=== PATIENT | female | born 1955 | race Caucasian/White ===

== ENCOUNTER 2017-04-03 11:08 | Outpatient (CLI) | payer MEDICAID ==
[~2017-04-03 11:08] MED LIST: HYDR-3965 PO
[2017-04-03 11:18] VITALS: BP 155/87
== END 2017-04-03 11:55 | disposition home or self-care (01) ==
LOC: ORTHO 11:08
PROVIDERS: ATTEND Nurse Practitioner Family
DX: S89.92XA Unspecified injury of left lower leg, initial encounter (principal); X50.1XXA Overexertion from prolonged static or awkward postures, initial encounter; Y93.89 Activity, other specified; Y92.838 Other recreation area as the place of occurrence of the external cause
CPT/HCPCS: 99213

== ENCOUNTER 2017-04-23 10:53 | Emergency (ER) | payer MEDICAID ==
[~2017-04-23] VITALS: Ht 154.9 cm; Wt 59.0 kg
[2017-04-23] MEDS ORDERED: ACET1TAB12 PO (12:15)
[2017-04-23 12:22] VITALS: BP 154/85
== END 2017-04-23 12:23 | disposition home or self-care (01) ==
LOC: ER 10:53
DX: M25.562 Pain in left knee (principal); Z56.0 Unemployment, unspecified; Z59.0 Homelessness; Z79.899 Other long term (current) drug therapy
CPT/HCPCS: 29505; 99283

== ENCOUNTER 2017-11-05 17:36 | Emergency (ER) | payer MEDICAID ==
[~2017-11-05] VITALS: Ht 167.6 cm; Wt 52.0 kg
[~2017-11-05 17:36] MED LIST changes: +ACET1TAB12 PO; -HYDR-3965 PO
[2017-11-05] MEDS ORDERED: SILV20CR13 TOP (18:58)
[2017-11-05] MEDS ORDERED: CEPH-571 PO (18:58)
[2017-11-05] MEDS ORDERED: DOXY100C43 PO (18:58)
[2017-11-05 19:03] VITALS: BP 155/99
[2017-11-05] MEDS ORDERED: IBUP-1984 PO (19:10)
== END 2017-11-05 19:11 | disposition home or self-care (01) ==
LOC: ER 17:36
DX: L52 Erythema nodosum (principal); Z79.899 Other long term (current) drug therapy; Z59.0 Homelessness; Z56.0 Unemployment, unspecified
CPT/HCPCS: 99283

== ENCOUNTER 2021-06-06 18:45 | Emergency (ER) | payer MEDICAID ==
[~2021-06-06] VITALS: Ht 170.2 cm; Wt 47.7 kg
[~2021-06-06 18:45] MED LIST changes: +CEPH-571 PO; +SILV20CR13 TOP
[2021-06-06] MEDS ORDERED: NEOM3.5O31 EACHEYE (20:46)
[2021-06-06] MEDS ORDERED: polymyxin B sulf/tmp ophth drops 10ml EACHEYE ONE (20:50)
[2021-06-06 21:01] VITALS: BP 164/86
== END 2021-06-06 21:03 | disposition home or self-care (01) ==
LOC: ER 18:46
DX: H10.89 Other conjunctivitis (principal); H11.003 Unspecified pterygium of eye, bilateral; H26.9 Unspecified cataract; Z86.73 Personal history of transient ischemic attack (TIA), and cerebral infarction without residual deficits; Z56.0 Unemployment, unspecified; Z59.00 Homelessness unspecified; Z79.2 Long term (current) use of antibiotics; Z79.899 Other long term (current) drug therapy
CPT/HCPCS: 99284

== ENCOUNTER 2022-01-10 19:58 | Emergency (ER) | payer MEDICAID ==
[~2022-01-10] VITALS: Ht 167.6 cm; Wt 59.1 kg
[~2022-01-10 19:58] MED LIST changes: +NEOM3.5O31 EACHEYE
[2022-01-10 20:49] LABS: BASOPHILS # (AUTO) 0.1 X10'3 (0-0.2); BASOPHILS % (AUTO) 0.7 % (0-1); EOSINOPHILS # (AUTO) 0.3 X10'3 (0-0.9); EOSINOPHILS % (AUTO) 3.1 % (0-6); HEMATOCRIT 40.9 % (35.0-45.0); HEMOGLOBIN 13.4 g/dl (12.0-16.0); LYMPHOCYTES # (AUTO) 2.1 X10'3 (1.1-4.8); LYMPHOCYTES % (AUTO) 21.5 % (21-51); MEAN CORPUSCULAR HEMOGLOBIN 28.1 PG (27.0-31.0); MEAN CORPUSCULAR HGB CONC 32.8 g/dL (33.0-36.5); MEAN CORPUSCULAR VOLUME 85.5 FL (78-98); MEAN PLATELET VOLUME 8.1 FL (7.4-10.4); MONOCYTES % (AUTO) 10.9 % (2-12); NEUTROPHILS # (AUTO) 6.1 X10'3 (1.8-7.7); NEUTROPHILS % (AUTO) 63.8 % (42-75); PLATELET COUNT 257 X10'3 (140-440); RED BLOOD COUNT 4.78 X10'6 (4.20-5.60); RED CELL DISTRIBUTION WIDTH 15.5 % (11.5-14.5); WHITE BLOOD COUNT 9.5 X10'3 (4.5-11.0)
[2022-01-10 21:02] LABS: ALANINE AMINOTRANSFERASE 11 U/L (12-78); ALBUMIN 3.1 G/DL (3.4-5.0); ALBUMIN/GLOBULIN RATIO 0.6 (1.1-1.5); ALKALINE PHOSPHATASE 80 IU/L (46-116); ANION GAP 6 (8-16); ASPARTATE AMINO TRANSFERASE 14 U/L (10-37); BILIRUBIN,TOTAL 0.2 MG/DL (0.1-1.0); BLOOD UREA NITROGEN 24 MG/DL (7-18); CALCIUM 9.9 MG/DL (8.5-10.1); CHLORIDE 104 MMOL/L (99-107); GLUCOSE 107 MG/DL (70-104); POTASSIUM 4.4 MMOL/L (3.5-5.1); SODIUM 140 MMOL/L (135-145); TOTAL CARBON DIOXIDE 29.6 MMOL/L (24-32); TOTAL PROTEIN 7.9 G/DL (6.4-8.2); eGFR 35 ML/MIN
[2022-01-10] MEDS ORDERED: ALBU8.5H17 INH (22:09)
[2022-01-10] MEDS ORDERED: CIPR-259 PO (22:09)
[2022-01-10] MEDS ORDERED: ciprofloxacin 250mg tablet PO ONE (22:10)
[2022-01-10] MEDS ORDERED: ondansetron 4mg rapidly disintigrating tab PO ONE (22:10)
[2022-01-10 23:04] VITALS: BP 152/69
== END 2022-01-10 23:06 | disposition home or self-care (01) ==
LOC: ER 19:58
DX: R06.02 Shortness of breath (principal); R05.9 Cough, unspecified; Z59.00 Homelessness unspecified; Z56.0 Unemployment, unspecified; Z79.899 Other long term (current) drug therapy
CPT/HCPCS: 36415; 71045; 80053; 83880; 84484; 85025; 93005; 99285

== ENCOUNTER 2022-02-08 01:11 | Inpatient (IN) | payer MEDICAID ==
[~2022-02-08] VITALS: Ht 170.2 cm; Wt 51.0 kg
[~2022-02-08 01:11] MED LIST changes: +ALBU8.5H17 INH
[2022-02-08] MEDS ORDERED: ipratropium/albuterol 3ml nebule NEB ONE (01:30)
[2022-02-08] MEDS ORDERED: methylPREDNISolone sod succ 125mg/2ml vial IV ONE ×2 (01:40→14:00)
[2022-02-08] MEDS ORDERED: albuterol 2.5 MG/3 ML nebule CONTNEB PRN (02:05)
[2022-02-08 02:30] LABS: BASOPHILS # (AUTO) 0.1 X10'3 (0-0.2); BASOPHILS % (AUTO) 0.7 % (0-1); EOSINOPHILS # (AUTO) 1.2 X10'3 (0-0.9); EOSINOPHILS % (AUTO) 11.7 % (0-6); HEMATOCRIT 41.7 % (35.0-45.0); HEMOGLOBIN 13.9 g/dl (12.0-16.0); LYMPHOCYTES # (AUTO) 4.6 X10'3 (1.1-4.8); LYMPHOCYTES % (AUTO) 45.5 % (21-51); MEAN CORPUSCULAR HEMOGLOBIN 28.1 PG (27.0-31.0); MEAN CORPUSCULAR HGB CONC 33.3 g/dL (33.0-36.5); MEAN CORPUSCULAR VOLUME 84.3 FL (78-98); MEAN PLATELET VOLUME 7.8 FL (7.4-10.4); MONOCYTES # (AUTO) 0.8 X10'3 (0-0.9); MONOCYTES % (AUTO) 8.2 % (2-12); NEUTROPHILS # (AUTO) 3.4 X10'3 (1.8-7.7); NEUTROPHILS % (AUTO) 33.9 % (42-75); PLATELET COUNT 265 X10'3 (140-440); RED BLOOD COUNT 4.95 X10'6 (4.20-5.60); WHITE BLOOD COUNT 10.1 X10'3 (4.5-11.0)
[2022-02-08 02:45] LABS: ALANINE AMINOTRANSFERASE 15 U/L (12-78); ALBUMIN 3.3 G/DL (3.4-5.0); ALBUMIN/GLOBULIN RATIO 0.8 (1.1-1.5); ALKALINE PHOSPHATASE 83 IU/L (46-116); ANION GAP 6 (8-16); ASPARTATE AMINO TRANSFERASE 17 U/L (10-37); BILIRUBIN,TOTAL 0.2 MG/DL (0.1-1.0); BLOOD UREA NITROGEN 23 MG/DL (7-18); BUN/CREATININE RATIO 18.5 (6.6-38.0); CALCIUM 9.5 MG/DL (8.5-10.1); CHLORIDE 106 MMOL/L (99-107); CREATININE 1.24 MG/DL (0.40-0.90); GLUCOSE 108 MG/DL (70-104); POTASSIUM 3.9 MMOL/L (3.5-5.1); SODIUM 144 MMOL/L (135-145); TOTAL CARBON DIOXIDE 32.4 MMOL/L (24-32); TOTAL PROTEIN 7.7 G/DL (6.4-8.2); eGFR 43 ML/MIN
[2022-02-08] MEDS ORDERED: azithromycin 250mg tablet PO ONE (04:00)
[2022-02-08] MEDS ORDERED: PRED20TA PO ×2 (04:03)
[2022-02-08] MEDS ORDERED: AZIT-83 PO ×2 (04:03)
[2022-02-08] MEDS ORDERED: acetaminophen 650mg rectal suppository RC PRN (05:30)
[2022-02-08] MEDS ORDERED: ondansetron/PF 4mg/2ml inj IV PRN (05:30)
[2022-02-08] MEDS ORDERED: magnesium hydroxide 30ml (MOM) UD suspension PO PRN (05:30)
[2022-02-08] MEDS ORDERED: mag hydrox/Alum hydrox/simeth 30ml oral suspension PO PRN (05:30)
[2022-02-08] MEDS: normal saline 1000ml 1,000 ML IV SCH ×2 (05:41→14:47)
[2022-02-08] MEDS: docusate sod 100mg capsule PO SCH ×2 (07:52→17:48)
[2022-02-08] MEDS: heparin, porcine 5000 units/ml vial SQ SCH ×2 (09:41→17:48)
[2022-02-08] MEDS: CefTRIAXone/D5W-Rocephin 1gm 50 ML IV SCH (12:40)
[2022-02-08] MEDS ORDERED: ALBU17AE26 PO (12:53)
[2022-02-08] MEDS ORDERED: non-formulary drug (Albuterol 2 PUFF) PO PRN (13:25)
[2022-02-08] MEDS: ofloxacin 0.33% 5ml ophthalmic drops RIGHTEYE SCH ×2 (16:32→21:53)
[2022-02-08 20:45] VITALS: BP 168/74
[2022-02-09] MEDS: heparin, porcine 5000 units/ml vial SQ SCH ×4 (00:14→23:42)
[2022-02-09] MEDS: normal saline 1000ml 1,000 ML IV SCH ×3 (01:30→23:42)
[2022-02-09] MEDS: ofloxacin 0.33% 5ml ophthalmic drops RIGHTEYE SCH ×4 (01:36→20:28)
[2022-02-09 06:00] VITALS: BP 141/57
--- NOTE | 2022-02-09 06:08 | NUR ---
Problems reprioritized. Patient report given, questions answered & plan of care reviewed with Patricia.
[2022-02-09 06:49] LABS: BASOPHILS % (AUTO) 0.2 % (0-1); EOSINOPHILS % (AUTO) 0 % (0-6); HEMATOCRIT 38.4 % (35.0-45.0); HEMOGLOBIN 12.8 g/dl (12.0-16.0); LYMPHOCYTES # (AUTO) 1.7 X10'3 (1.1-4.8); LYMPHOCYTES % (AUTO) 17.6 % (21-51); MEAN CORPUSCULAR HEMOGLOBIN 28.2 PG (27.0-31.0); MEAN CORPUSCULAR HGB CONC 33.4 g/dL (33.0-36.5); MEAN CORPUSCULAR VOLUME 84.6 FL (78-98); MEAN PLATELET VOLUME 9.3 FL (7.4-10.4); MONOCYTES # (AUTO) 0.6 X10'3 (0-0.9); MONOCYTES % (AUTO) 6.5 % (2-12); NEUTROPHILS # (AUTO) 7.1 X10'3 (1.8-7.7); NEUTROPHILS % (AUTO) 75.7 % (42-75); PLATELET COUNT 206 X10'3 (140-440); RED BLOOD COUNT 4.54 X10'6 (4.20-5.60); RED CELL DISTRIBUTION WIDTH 14.9 % (11.5-14.5); WHITE BLOOD COUNT 9.4 X10'3 (4.5-11.0)
--- NOTE | 2022-02-09 07:07 | NUR ---
Patient in room [facility] 349. I have received report from Peggy and had the opportunity to ask questions and assume patient care.
[2022-02-09 07:10] LABS: ALANINE AMINOTRANSFERASE 9 U/L (12-78); ALBUMIN 2.8 G/DL (3.4-5.0); ALBUMIN/GLOBULIN RATIO 0.7 (1.1-1.5); ALKALINE PHOSPHATASE 72 IU/L (46-116); ANION GAP 7 (8-16); ASPARTATE AMINO TRANSFERASE 20 U/L (10-37); BILIRUBIN,TOTAL 0.2 MG/DL (0.1-1.0); BLOOD UREA NITROGEN 23 MG/DL (7-18); CALCIUM 9.5 MG/DL (8.5-10.1); CHLORIDE 110 MMOL/L (99-107); CREATININE 1.15 MG/DL (0.40-0.90); GLUCOSE 107 MG/DL (70-104); SODIUM 143 MMOL/L (135-145); TOTAL CARBON DIOXIDE 25.7 MMOL/L (24-32); TOTAL PROTEIN 6.8 G/DL (6.4-8.2); eGFR 47 ML/MIN
[2022-02-09 07:13] LABS: POTASSIUM 4.7 MMOL/L (3.5-5.1)
[2022-02-09] MEDS: docusate sod 100mg capsule PO SCH ×2 (08:00→20:00)
[2022-02-09] MEDS: CefTRIAXone/D5W-Rocephin 1gm 50 ML IV SCH (08:18)
[2022-02-09 10:00] VITALS: BP 169/73
[2022-02-09] MEDS: methylPREDNISolone sod succ 125mg/2ml vial IV SCH ×2 (15:00→20:28)
[2022-02-09] MEDS: albuterol 2.5 MG/3 ML nebule NEB PRN ×2 (15:35→20:06)
--- NOTE | 2022-02-09 15:58 | NUR ---
Noted pt low BMI in EMR. Pt NPO admit DX COPD exacerbation, acute bronchitis and hx L hemiparesis following prior CVA which required trach last year which has since healed per EMR. Per MANUFACTURING LABORER recs, unsafe for swallow since admit 02/08 may require alternative nutrition. Unsure of accuracy of current standing scaled wt given pt L hemiparesis hx though current wt is consistent w/ prior reported wt hx in EMR. However, pt height hx fluctuates 61-67in prior admits in EMR unsure which most accurate. Pt seen by RD at bedside; pt able to communicate w/ much effort reports is hungry dose have appetite w/ prior UBW ~120 pounds though no timeline provided. Per RN, pt continues to be aspiration risk. RD contacted [facility] dietitian's office regarding MANUFACTURING LABORER/diet plan while staying there last year but RD reports now new EMR and unable to find pt record at this time. Pt currently lacks minimum malnutrition criteria but IF remains NPO tomorrow per MANUFACTURING LABORER/MD recs may benefit from NG feeds to optimize nutrition status given hx. Addendum: 02/09/22 at [address] Amended: Links added.
[2022-02-09 18:15] VITALS: BP 178/77
--- NOTE | 2022-02-09 18:15 | NUR ---
Patient in room [facility] 349. I have received report from LITZY Heredia and had the opportunity to ask questions and assume patient care. Addendum: 02/10/22 at 0112 by Devonte Allen RN Amended: Links added.
--- NOTE | 2022-02-09 18:20 | NUR ---
Patient in room E[facility] 349. I have received report from LITZY Gomez and had the opportunity to ask questions and assume patient care.
--- NOTE | 2022-02-09 18:29 | NUR ---
Problems reprioritized. Patient report given, questions answered & plan of care reviewed with Lizet.
--- NOTE | 2022-02-09 19:10 | NUR ---
son at bedside asking why pt is npo, explained swallow study and recommendation from ST. pt and son both states she has no problems eating or drinking. Son wants md to call him in the morning. number put in SBAR, will report to oncoming shift and discharge door operator> Addendum: 02/10/22 at 0115 by Devonte Allen RN Amended: Links added.
[2022-02-09 22:00] VITALS: BP 135/66
[2022-02-10] MEDS: methylPREDNISolone sod succ 125mg/2ml vial IV SCH ×4 (02:52→20:04)
[2022-02-10] MEDS: ofloxacin 0.33% 5ml ophthalmic drops RIGHTEYE SCH ×4 (02:52→20:04)
[2022-02-10 06:00] VITALS: BP 173/82
[2022-02-10 06:28] LABS: ALANINE AMINOTRANSFERASE 11 U/L (12-78); ALBUMIN/GLOBULIN RATIO 0.8 (1.1-1.5); ALKALINE PHOSPHATASE 70 IU/L (46-116); ANION GAP 8 (8-16); ASPARTATE AMINO TRANSFERASE 14 U/L (10-37); BILIRUBIN,TOTAL 0.2 MG/DL (0.1-1.0); BLOOD UREA NITROGEN 26 MG/DL (7-18); BUN/CREATININE RATIO 22.8 (6.6-38.0); CALCIUM 9.3 MG/DL (8.5-10.1); CHLORIDE 109 MMOL/L (99-107); CREATININE 1.14 MG/DL (0.40-0.90); GLUCOSE 132 MG/DL (70-104); SODIUM 142 MMOL/L (135-145); TOTAL PROTEIN 6.9 G/DL (6.4-8.2); eGFR 48 ML/MIN
--- NOTE | 2022-02-10 06:30 | NUR ---
Problems reprioritized. Patient report given, questions answered & plan of care reviewed with LITZY Lund. Addendum: 02/10/22 at 0630 by Devonte Allen RN Amended: Links added.
[2022-02-10 06:41] LABS: BASOPHILS % (AUTO) 0.2 % (0-1); EOSINOPHILS % (AUTO) 0 % (0-6); HEMOGLOBIN 13.2 g/dl (12.0-16.0); LYMPHOCYTES # (AUTO) 0.9 X10'3 (1.1-4.8); LYMPHOCYTES % (AUTO) 12.5 % (21-51); MEAN CORPUSCULAR HEMOGLOBIN 27.9 PG (27.0-31.0); MEAN CORPUSCULAR HGB CONC 33.1 g/dL (33.0-36.5); MEAN CORPUSCULAR VOLUME 84.4 FL (78-98); MEAN PLATELET VOLUME 9.3 FL (7.4-10.4); MONOCYTES # (AUTO) 0.1 X10'3 (0-0.9); MONOCYTES % (AUTO) 0.9 % (2-12); NEUTROPHILS # (AUTO) 6.6 X10'3 (1.8-7.7); NEUTROPHILS % (AUTO) 86.4 % (42-75); PLATELET COUNT 227 X10'3 (140-440); RED BLOOD COUNT 4.74 X10'6 (4.20-5.60); WHITE BLOOD COUNT 7.6 X10'3 (4.5-11.0)
--- NOTE | 2022-02-10 06:44 | NUR ---
Patient in room [facility] 349. I have received report from Lizet MCGHEE and had the opportunity to ask questions and assume patient care.
[2022-02-10] MEDS: normal saline 1000ml 1,000 ML IV SCH ×3 (07:30→20:53)
[2022-02-10] MEDS: heparin, porcine 5000 units/ml vial SQ SCH ×2 (07:47→16:00)
[2022-02-10] MEDS: CefTRIAXone/D5W-Rocephin 1gm 50 ML IV SCH (07:52)
--- NOTE | 2022-02-10 07:52 | NUR ---
Student Medication Administration: For this medication-pass time frame, all medication were reviewed, dispensed, administered and documented per hospital policy by Quinn Garcia, student nurse with instructor Lyndsey Colon RN.
[2022-02-10] MEDS: docusate sod 100mg capsule PO SCH ×2 (08:00→20:00)
[2022-02-10 10:00] VITALS: BP 170/82
[2022-02-10] MEDS: albuterol 2.5 MG/3 ML nebule NEB PRN ×2 (10:44→21:03)
--- NOTE | 2022-02-10 15:49 | NUR ---
Nutrition/Reese Consults "Pt NPO for days now can't swallow": Pt admit DX aspiration, COPD on 2L NC, acute bronchitis, and hx L hemiparesis following prior CVA which required trach last year but has since healed per EMR. Pt remains NPO per POLICE DEPARTMENT SECRETARY recs. RD paged MD regarding NG feeds given unsafe swallow if agreeable. MD agreeable w/ order for corpak placement in EMR; TF recs below. Per RN, after reviewing NG feeds w/ pt/son pt declined NG stating she eats regular foods at home even though NPO at this time per POLICE DEPARTMENT SECRETARY recs. Will keep TF recs below in case pt changes decision as remains NPO. Reese 12 w/ no edema/wounds per EMR. LBM 02/05 though no PO meals/meds since at least admit 02/08 likely impacting bowel regularity. Will monitor for further nutrition intervention needs this admit. Rec: 1. IF Continuous TF per MD; Jevity 1.2 at 60ml/hr goal would provide 1440ml volume/day, 1728 kcals, 1162ml water, and 80g protein. 2. IF TF; additional water flush 150ml Q4H 3. IF TF; PALB Q /; daily scaled wts 4. bowel care per rx 5. advance diet per POLICE DEPARTMENT SECRETARY/MD recs to regular as medically indicated 6. IF pt remains unsafe for PO per POLICE DEPARTMENT SECRETARY recs; consider long-term nutrition support strategies such as PEG IF within POC Addendum: 02/10/22 at [address] Amended: Links added.
--- NOTE | 2022-02-10 15:49 | NUR ---
Nutrition/Reese Consults "Pt NPO for days now can't swallow": Pt admit DX aspiration, COPD on 2L NC, acute bronchitis, and hx L hemiparesis following prior CVA which required trach last year but has since healed per EMR. Pt remains NPO per MUTUAL FUND ANALYST recs. RD paged MD regarding NG feeds given unsafe swallow if agreeable. MD agreeable w/ order for corpak placement in EMR; TF recs below. Per RN, after reviewing NG feeds w/ pt/son pt declined NG stating she eats regular foods at home even though NPO at this time per MUTUAL FUND ANALYST recs. Will keep TF recs below in case pt changes decision as remains NPO. Reese 12 w/ no edema/wounds per EMR. LBM 02/05 though no PO meals/meds since at least admit 02/08 likely impacting bowel regularity. Will monitor for further nutrition intervention needs this admit. Rec: 1. IF Continuous TF per MD; Jevity 1.2 at 60ml/hr goal would provide 1440ml volume/day, 1728 kcals, 1162ml water, and 80g protein. 2. IF TF; additional water flush 150ml Q4H 3. IF TF; PALB Q /; daily scaled wts 4. bowel care per rx 5. advance diet per MUTUAL FUND ANALYST/MD recs to regular as medically indicated 6. IF pt remains unsafe for PO per MUTUAL FUND ANALYST recs; consider long-term nutrition support strategies such as PEG IF within POC Addendum: 02/10/22 at [address] Amended: Links added.
[2022-02-10 18:00] VITALS: BP 178/82
[2022-02-10 18:30] VITALS: BP 171/82
--- NOTE | 2022-02-10 18:30 | NUR ---
Problems reprioritized. Patient report given, questions answered & plan of care reviewed with MARILIA MCGHEE.
--- NOTE | 2022-02-10 18:30 | NUR ---
Patient in room [facility] 349. I have received report from LITZY Lund and had the opportunity to ask questions and assume patient care. Addendum: 02/11/22 at 0230 by Devonte Allen RN Amended: Links added.
--- NOTE | 2022-02-10 19:47 | NUR ---
Student documentation: I have reviewed and agree with all interventions, assessments performed and documented by [place] student nurse, by Christian Colon RN instructor.
[2022-02-10 21:30] VITALS: BP 155/72
[2022-02-11] MEDS: methylPREDNISolone sod succ 125mg/2ml vial IV SCH ×4 (02:38→19:57)
[2022-02-11] MEDS: ofloxacin 0.33% 5ml ophthalmic drops RIGHTEYE SCH ×4 (02:40→19:57)
[2022-02-11] MEDS: normal saline 1000ml 1,000 ML IV SCH ×2 (05:14→17:16)
[2022-02-11 06:00] VITALS: BP 167/47
[2022-02-11 06:32] LABS: BASOPHILS % (AUTO) 0.2 % (0-1); EOSINOPHILS % (AUTO) 0.1 % (0-6); HEMATOCRIT 42.1 % (35.0-45.0); HEMOGLOBIN 13.7 g/dl (12.0-16.0); LYMPHOCYTES # (AUTO) 0.9 X10'3 (1.1-4.8); LYMPHOCYTES % (AUTO) 10.9 % (21-51); MEAN CORPUSCULAR HEMOGLOBIN 27.6 PG (27.0-31.0); MEAN CORPUSCULAR HGB CONC 32.6 g/dL (33.0-36.5); MEAN CORPUSCULAR VOLUME 84.6 FL (78-98); MEAN PLATELET VOLUME 9.2 FL (7.4-10.4); MONOCYTES # (AUTO) 0.2 X10'3 (0-0.9); MONOCYTES % (AUTO) 2.4 % (2-12); NEUTROPHILS # (AUTO) 7.3 X10'3 (1.8-7.7); NEUTROPHILS % (AUTO) 86.4 % (42-75); PLATELET COUNT 221 X10'3 (140-440); RED BLOOD COUNT 4.97 X10'6 (4.20-5.60); RED CELL DISTRIBUTION WIDTH 15.1 % (11.5-14.5); WHITE BLOOD COUNT 8.5 X10'3 (4.5-11.0)
--- NOTE | 2022-02-11 06:39 | NUR ---
Problems reprioritized. Patient report given, questions answered & plan of care reviewed with LITZY Galaviz. Addendum: 02/11/22 at 0640 by Devonte Allen RN Amended: Links added.
--- NOTE | 2022-02-11 06:48 | NUR ---
Patient in room [facility] 349. I have received report from Lizet MCGHEE and had the opportunity to ask questions and assume patient care.
[2022-02-11 07:00] VITALS: BP 167/47
[2022-02-11 07:22] LABS: ALBUMIN 2.9 G/DL (3.4-5.0); ALBUMIN/GLOBULIN RATIO 0.7 (1.1-1.5); ALKALINE PHOSPHATASE 70 IU/L (46-116); ANION GAP 13 (8-16); ASPARTATE AMINO TRANSFERASE 22 U/L (10-37); BILIRUBIN,TOTAL 0.3 MG/DL (0.1-1.0); BLOOD UREA NITROGEN 27 MG/DL (7-18); CALCIUM 9.1 MG/DL (8.5-10.1); CHLORIDE 106 MMOL/L (99-107); CREATININE 1.08 MG/DL (0.40-0.90); GLUCOSE 108 MG/DL (70-104); SODIUM 140 MMOL/L (135-145); TOTAL CARBON DIOXIDE 21.4 MMOL/L (24-32); eGFR 51 ML/MIN
[2022-02-11 07:49] LABS: ALANINE AMINOTRANSFERASE 7 U/L (12-78)
[2022-02-11] MEDS: docusate sod 100mg capsule PO SCH ×2 (08:00→20:00)
[2022-02-11] MEDS: heparin, porcine 5000 units/ml vial SQ SCH ×4 (08:30→23:08)
[2022-02-11] MEDS: CefTRIAXone/D5W-Rocephin 1gm 50 ML IV SCH (08:31)
[2022-02-11 10:00] VITALS: BP 190/74
[2022-02-11 19:00] VITALS: BP 181/74
[2022-02-11 22:00] VITALS: BP 185/82
[2022-02-11 23:00] VITALS: BP 167/70
[2022-02-11] MEDS: hydrALAZINE 20mg/ml inj. IV PRN (23:05)
--- NOTE | 2022-02-11 23:13 | NUR ---
patients B/P 185/82,181/74 Dr Vizcarra notified, patient given 10mg Hydralazine , will continue to monitor
--- NOTE | 2022-02-12 | NUR ---
patients B/P 167/70 . changed x2 for urinary incontinence. son jaquelin stated on day shift he would like to be present for another speech eval, as he states patient eats fine at home if he feeds her. Chest xray is clear see report.
[2022-02-12] MEDS: ofloxacin 0.33% 5ml ophthalmic drops RIGHTEYE SCH ×4 (02:43→20:45)
[2022-02-12] MEDS: methylPREDNISolone sod succ 125mg/2ml vial IV SCH ×4 (02:43→20:45)
[2022-02-12] MEDS: normal saline 1000ml 1,000 ML IV SCH ×2 (04:48→17:19)
--- NOTE | 2022-02-12 05:32 | NUR ---
Problems reprioritized. Patient report given, questions answered & plan of care reviewed with Thelma MCGHEE.
--- NOTE | 2022-02-12 05:41 | NUR ---
patient's son requesting another BSS and to be present when its done, as he feels like he can feed his mother at home and is the main caregiver.. will give report to day staff with regards this.
[2022-02-12 06:00] VITALS: BP_SYST 179; BP_SYST 89; BP_DIAS 50; BP_DIAS 98
[2022-02-12 07:14] LABS: BASOPHILS % (AUTO) 0.2 % (0-1); EOSINOPHILS % (AUTO) 0 % (0-6); HEMOGLOBIN 15.4 g/dl (12.0-16.0); LYMPHOCYTES # (AUTO) 0.9 X10'3 (1.1-4.8); LYMPHOCYTES % (AUTO) 10.7 % (21-51); MEAN CORPUSCULAR HEMOGLOBIN 27.6 PG (27.0-31.0); MEAN CORPUSCULAR HGB CONC 32.8 g/dL (33.0-36.5); MEAN CORPUSCULAR VOLUME 84.2 FL (78-98); MEAN PLATELET VOLUME 9.3 FL (7.4-10.4); MONOCYTES # (AUTO) 0.2 X10'3 (0-0.9); MONOCYTES % (AUTO) 2.8 % (2-12); NEUTROPHILS # (AUTO) 7.5 X10'3 (1.8-7.7); NEUTROPHILS % (AUTO) 86.3 % (42-75); PLATELET COUNT 263 X10'3 (140-440); RED BLOOD COUNT 5.58 X10'6 (4.20-5.60); RED CELL DISTRIBUTION WIDTH 15.7 % (11.5-14.5); WHITE BLOOD COUNT 8.7 X10'3 (4.5-11.0)
[2022-02-12 07:31] LABS: ALANINE AMINOTRANSFERASE 11 U/L (12-78); ALBUMIN 3.1 G/DL (3.4-5.0); ALBUMIN/GLOBULIN RATIO 0.8 (1.1-1.5); ALKALINE PHOSPHATASE 72 IU/L (46-116); ANION GAP 10 (8-16); ASPARTATE AMINO TRANSFERASE 17 U/L (10-37); BILIRUBIN,TOTAL 0.3 MG/DL (0.1-1.0); BLOOD UREA NITROGEN 32 MG/DL (7-18); BUN/CREATININE RATIO 28.8 (6.6-38.0); CALCIUM 9.1 MG/DL (8.5-10.1); CHLORIDE 105 MMOL/L (99-107); CREATININE 1.11 MG/DL (0.40-0.90); GLUCOSE 117 MG/DL (70-104); POTASSIUM 3.6 MMOL/L (3.5-5.1); SODIUM 140 MMOL/L (135-145); TOTAL CARBON DIOXIDE 24.7 MMOL/L (24-32); TOTAL PROTEIN 7.1 G/DL (6.4-8.2); eGFR 49 ML/MIN
[2022-02-12] MEDS: docusate sod 100mg capsule PO SCH (08:00)
[2022-02-12] MEDS: CefTRIAXone/D5W-Rocephin 1gm 50 ML IV SCH (09:02)
[2022-02-12 10:00] VITALS: BP 169/95
[2022-02-12] MEDS: heparin, porcine 5000 units/ml vial SQ SCH ×2 (10:25→17:18)
--- NOTE | 2022-02-12 11:10 | NUR ---
as clinical instructor i reviewed nursing informatics clinical analyst charting
--- NOTE | 2022-02-12 12:52 | NUR ---
PRESSURE ULCER EDUCATION: DEFINITION: A pressure ulcer is an area of skin that breaks down when you stay in one position too long. The constant pressure against the skin reduces the blood flow to that area and the affected tissue dies. CAUSES: "Being bedridden or in a wheelchair "Fragile skin "Having a chronic condition, such as diabetes or vascular disease "Inability to move certain parts of your body without assistance "Older age "Incontinence of urine or stool SYMPTOMS: "A reddened area that DOES NOT turn white when pressed on - this can be the beginning of a pressure ulcer "A blister, deep sore or a crater - these can be advanced pressure ulcers FIRST AID: "Relieve the pressure on this area "Keep the area clean and dry "Call your primary doctor if you see any of the above symptoms "DO NOT massage the area "DO NOT use a donut shaped or ring shaped pillow- these actually interfere with the blood flow and cause complications PREVENTION: "Check for pressure ulcers everyday "Change position at least every two hours to relieve pressure "Use items that help relieve pressure- pillows, sheepskin, foam padding, and powders. "Keep skin clean and dry "Eat healthy well balanced meals "Exercise daily IF YOU SEE ANY OF THESE SYMPTOMS WHILE IN THE HOSPITAL - TELL YOUR NURSE IMMEDIATELY. IF YOU SEE ANY OF THESE SYMPTOMS WHILE AT HOME OR HAVE ANY QUESTIONS OR CONCERNS ABOUT PRESSURE ULCERS - CALL YOUR PRIMARY DOCTOR IMMEDIATELY. Addendum: 02/12/22 at 1252 by Katarzyna Roberson RN Amended: Links added.
[2022-02-12 18:00] VITALS: BP 173/94
--- NOTE | 2022-02-12 18:46 | NUR ---
Patient in room [facility] 349. I have received report from ERIKA MCGHEE and had the opportunity to ask questions and assume patient care.
[2022-02-12] MEDS ORDERED: docusate sodium 100mg/10ml UD cup PO SCH (20:00)
[2022-02-12 22:00] VITALS: BP 188/94
[2022-02-12] MEDS: hydrALAZINE 20mg/ml inj. IV PRN (23:31)
[2022-02-13] MEDS: heparin, porcine 5000 units/ml vial SQ SCH ×3 (00:26→16:36)
[2022-02-13 01:00] VITALS: BP 167/98
[2022-02-13] MEDS: ofloxacin 0.33% 5ml ophthalmic drops RIGHTEYE SCH ×4 (02:26→21:31)
[2022-02-13] MEDS: normal saline 1000ml 1,000 ML IV SCH ×2 (05:12→21:31)
[2022-02-13 06:00] VITALS: BP 174/63
--- NOTE | 2022-02-13 06:19 | NUR ---
Problems reprioritized. Patient report given, questions answered & plan of care reviewed with CHARLIE MCGHEE.
[2022-02-13 06:51] LABS: BASOPHILS % (AUTO) 0.3 % (0-1); EOSINOPHILS % (AUTO) 0 % (0-6); HEMATOCRIT 44.7 % (35.0-45.0); HEMOGLOBIN 14.6 g/dl (12.0-16.0); LYMPHOCYTES % (AUTO) 11.9 % (21-51); MEAN CORPUSCULAR HEMOGLOBIN 27.6 PG (27.0-31.0); MEAN CORPUSCULAR HGB CONC 32.6 g/dL (33.0-36.5); MEAN CORPUSCULAR VOLUME 84.7 FL (78-98); MEAN PLATELET VOLUME 9.3 FL (7.4-10.4); MONOCYTES # (AUTO) 0.5 X10'3 (0-0.9); MONOCYTES % (AUTO) 6.3 % (2-12); NEUTROPHILS # (AUTO) 6.5 X10'3 (1.8-7.7); NEUTROPHILS % (AUTO) 81.5 % (42-75); PLATELET COUNT 255 X10'3 (140-440); RED BLOOD COUNT 5.28 X10'6 (4.20-5.60); RED CELL DISTRIBUTION WIDTH 15.3 % (11.5-14.5)
--- NOTE | 2022-02-13 07:00 | NUR ---
Patient in room [facility] 349. I have received report from Nikunj and had the opportunity to ask questions and assume patient care.
[2022-02-13 07:30] LABS: ALANINE AMINOTRANSFERASE 6 U/L (12-78); ALBUMIN 2.8 G/DL (3.4-5.0); ALBUMIN/GLOBULIN RATIO 0.8 (1.1-1.5); ALKALINE PHOSPHATASE 64 IU/L (46-116); ANION GAP 9 (8-16); ASPARTATE AMINO TRANSFERASE 16 U/L (10-37); BILIRUBIN,TOTAL 0.3 MG/DL (0.1-1.0); BLOOD UREA NITROGEN 36 MG/DL (7-18); BUN/CREATININE RATIO 31.3 (6.6-38.0); CALCIUM 8.8 MG/DL (8.5-10.1); CHLORIDE 108 MMOL/L (99-107); CREATININE 1.15 MG/DL (0.40-0.90); GLUCOSE 124 MG/DL (70-104); POTASSIUM 3.6 MMOL/L (3.5-5.1); SODIUM 141 MMOL/L (135-145); TOTAL CARBON DIOXIDE 24.5 MMOL/L (24-32); TOTAL PROTEIN 6.3 G/DL (6.4-8.2); eGFR 47 ML/MIN
[2022-02-13] MEDS: methylPREDNISolone sod succ 125mg/2ml vial IV SCH ×2 (07:43→21:32)
[2022-02-13] MEDS: CefTRIAXone/D5W-Rocephin 1gm 50 ML IV SCH (07:43)
--- NOTE | 2022-02-13 09:29 | NUR ---
Reassessment: Pt advanced to Puree/HTL 02/12 per LAMINATOR PREFORMS recs, requires feeder. Pt has had 100% of 1 meals and 50% of second since diet advanced. Pt will need to consume ~70% of meals to be meeting est nutrient needs. [facility] 02/05 recommend adding routine bowel care if MD agreeable. Will continue to monitor. Rec: 2. Continue Puree/HTL per LAMINATOR PREFORMS recs; feeder w/ meals 3. IF Continuous TF per MD; Jevity 1.2 at 60ml/hr goal would provide 1440ml volume/day, 1728 kcals, 1162ml water, and 80g protein. 4. IF TF; additional water flush 150ml Q4H 5. IF TF; PALB Q /; daily scaled wts 6. Routine bowel care Addendum: 02/13/22 at [address] Amended: Links added.
[2022-02-13] MEDS: albuterol 2.5 MG/3 ML nebule NEB PRN (10:30)
[2022-02-13 11:00] VITALS: BP 163/84
--- NOTE | 2022-02-13 18:45 | NUR ---
Patient in room [facility] 349. I have received report from CHARLIE MCGHEE and had the opportunity to ask questions and assume patient care.
[2022-02-13 19:00] VITALS: BP 161/78
[2022-02-13] MEDS ORDERED: iohexol 300mg/ml 100ml inj. ONE (20:07)
[2022-02-13 23:00] VITALS: BP 185/91
[2022-02-14] MEDS: heparin, porcine 5000 units/ml vial SQ SCH ×3 (00:25→17:04)
[2022-02-14] MEDS: hydrALAZINE 20mg/ml inj. IV PRN ×2 (00:25→10:33)
[2022-02-14 02:00] VITALS: BP 178/83
[2022-02-14] MEDS: ofloxacin 0.33% 5ml ophthalmic drops RIGHTEYE SCH ×3 (02:30→15:05)
[2022-02-14 06:00] VITALS: BP 175/92
--- NOTE | 2022-02-14 06:30 | NUR ---
Problems reprioritized. Patient report given, questions answered & plan of care reviewed with CHARLIE MCGHEE.
--- NOTE | 2022-02-14 06:51 | NUR ---
Patient in room [facility] 349. I have received report from Nikunj MCGHEE and had the opportunity to ask questions and assume patient care.
[2022-02-14] MEDS: CefTRIAXone/D5W-Rocephin 1gm 50 ML IV SCH (08:02)
[2022-02-14] MEDS: methylPREDNISolone sod succ 125mg/2ml vial IV SCH (08:03)
[2022-02-14 10:00] VITALS: BP 198/85
[2022-02-14 10:40] VITALS: BP 198/85
[2022-02-14] MEDS ORDERED: amLODIPine 5mg tablet PO SCH (10:50)
[2022-02-14 11:00] VITALS: BP 158/78
[2022-02-14 11:22] VITALS: BP_SYST 158
[2022-02-14 11:48] LABS: BASOPHILS % (AUTO) 0.1 % (0-1); EOSINOPHILS % (AUTO) 0 % (0-6); HEMATOCRIT 46.7 % (35.0-45.0); HEMOGLOBIN 15.3 g/dl (12.0-16.0); LYMPHOCYTES # (AUTO) 0.9 X10'3 (1.1-4.8); LYMPHOCYTES % (AUTO) 9.2 % (21-51); MEAN CORPUSCULAR HEMOGLOBIN 28.1 PG (27.0-31.0); MEAN CORPUSCULAR HGB CONC 32.7 g/dL (33.0-36.5); MEAN CORPUSCULAR VOLUME 85.7 FL (78-98); MEAN PLATELET VOLUME 9.3 FL (7.4-10.4); MONOCYTES # (AUTO) 0.5 X10'3 (0-0.9); MONOCYTES % (AUTO) 5.2 % (2-12); NEUTROPHILS % (AUTO) 85.5 % (42-75); PLATELET COUNT 229 X10'3 (140-440); RED BLOOD COUNT 5.45 X10'6 (4.20-5.60); RED CELL DISTRIBUTION WIDTH 15.8 % (11.5-14.5); WHITE BLOOD COUNT 9.4 X10'3 (4.5-11.0)
[2022-02-14] MEDS ORDERED: LEVO-65 PO (13:33)
[2022-02-14] MEDS ORDERED: LISI5TAB22 PO (13:33)
[2022-02-14] MEDS ORDERED: PRED10TA23 PO (13:33)
[2022-02-14] MEDS ORDERED: NOR5T PO (13:33)
[2022-02-14 14:25] LABS: ALANINE AMINOTRANSFERASE 11 U/L (12-78); ALBUMIN 3.1 G/DL (3.4-5.0); ALBUMIN/GLOBULIN RATIO 0.8 (1.1-1.5); ALKALINE PHOSPHATASE 68 IU/L (46-116); ANION GAP 11 (8-16); ASPARTATE AMINO TRANSFERASE 12 U/L (10-37); BILIRUBIN,TOTAL 0.3 MG/DL (0.1-1.0); BLOOD UREA NITROGEN 28 MG/DL (7-18); BUN/CREATININE RATIO 26.7 (6.6-38.0); CHLORIDE 104 MMOL/L (99-107); CREATININE 1.05 MG/DL (0.40-0.90); GLUCOSE 144 MG/DL (70-104); SODIUM 141 MMOL/L (135-145); TOTAL CARBON DIOXIDE 26.4 MMOL/L (24-32); TOTAL PROTEIN 6.9 G/DL (6.4-8.2); eGFR 52 ML/MIN
[2022-02-14] MEDS: normal saline 1000ml 1,000 ML IV SCH (15:16)
--- NOTE | 2022-02-14 17:50 | NUR ---
IV discontinued, cannula intact. Pt. DC instructions given to pt. and family member, verbalized understanding and had opportunity to ask questions. Pt requested to go home after dinner.
--- NOTE | 2022-02-14 18:50 | NUR ---
Pt. DC home with all personal belongings via wheelchair to private vehicle accompanied by staff and family member. DC instructions sent home with pt.
[2022-02-14] MEDS ORDERED: methylPREDNISolone sod succ 125mg/2ml vial IV SCH (20:00)
== END 2022-02-14 19:15 | disposition home or self-care (01) | DRG 140 ==
LOC: ER 01:12 → ED HOLD 05:33 → SUR 3N 20:44
PROVIDERS: ADMIT Internal Medicine; ATTEND Internal Medicine
PROC: BW241ZZ Computerized Tomography (CT Scan) of Chest and Abdomen using Low Osmolar Contrast (ICD-10-PCS; principal; 2022-02-13)
DX: J44.1 Chronic obstructive pulmonary disease with (acute) exacerbation (principal); R62.7 Adult failure to thrive; J44.0 Chronic obstructive pulmonary disease with (acute) lower respiratory infection; Z20.822 Contact with and (suspected) exposure to COVID-19; H10.89 Other conjunctivitis; I10 Essential (primary) hypertension; J20.9 Acute bronchitis, unspecified; Z86.73 Personal history of transient ischemic attack (TIA), and cerebral infarction without residual deficits; Z87.891 Personal history of nicotine dependence; Z59.00 Homelessness unspecified; Z68.1 Body mass index [BMI] 19.9 or less, adult; Z56.0 Unemployment, unspecified; Z79.899 Other long term (current) drug therapy
CPT/HCPCS: 36415; 71045; 71260; 80053; 83880; 84145; 85025; 87081; 87635; 92508; 92616; 93005; 94640; 94760; 96374; 97530; 99285; A4615; A7015; C9803; G0378; J0360; J0696; J1644; J2930; J3490; J7030; Q9967

== ENCOUNTER 2023-02-22 18:00 | Inpatient (IN) | payer MEDICAID ==
[~2023-02-22] VITALS: Ht 170.2 cm; Wt 42.1 kg
[~2023-02-22 18:00] MED LIST changes: -ACET1TAB12 PO; +ALBU6.7H14 INH; -ALBU8.5H17 INH; -CEPH-571 PO; +LACT1CAP26 PO; -NEOM3.5O31 EACHEYE; -SILV20CR13 TOP
[2023-02-22] MEDS ORDERED: iohexol 350MG/ML 100ml bottle IV ONE (18:18)
[2023-02-22 18:36] LABS: BASOPHILS % (AUTO) 0.2 % (0-1); EOSINOPHILS % (AUTO) 0.1 % (0-6); HEMATOCRIT 51.7 % (35.0-45.0); HEMOGLOBIN 16.8 g/dl (12.0-16.0); LYMPHOCYTES # (AUTO) 0.4 X10'3 (1.1-4.8); LYMPHOCYTES % (AUTO) 9.6 % (21-51); MEAN CORPUSCULAR HEMOGLOBIN 28.3 PG (27.0-31.0); MEAN CORPUSCULAR HGB CONC 32.6 g/dL (33.0-36.5); MEAN CORPUSCULAR VOLUME 86.9 FL (78-98); MEAN PLATELET VOLUME 9.2 FL (7.4-10.4); MONOCYTES # (AUTO) 0.2 X10'3 (0-0.9); MONOCYTES % (AUTO) 4.6 % (2-12); NEUTROPHILS # (AUTO) 3.2 X10'3 (1.8-7.7); NEUTROPHILS % (AUTO) 85.5 % (42-75); PLATELET COUNT 173 X10'3 (140-440); RED BLOOD COUNT 5.96 X10'6 (4.20-5.60); RED CELL DISTRIBUTION WIDTH 15.8 % (11.5-14.5); WHITE BLOOD COUNT 3.7 X10'3 (4.5-11.0)
[2023-02-22 18:42] LABS: APTT 38 SECONDS (22-32); INR 1.2 INR; PROTHROMBIN TIME 12.9 SECONDS (9.0-12.0)
[2023-02-22 18:44] LABS: ALANINE AMINOTRANSFERASE 45 U/L (12-78); ALBUMIN 3.2 G/DL (3.4-5.0); ALBUMIN/GLOBULIN RATIO 0.7 (1.1-1.5); ALKALINE PHOSPHATASE 94 IU/L (46-116); ANION GAP 16 (8-16); ASPARTATE AMINO TRANSFERASE 107 U/L (10-37); BILIRUBIN,TOTAL 0.5 MG/DL (0.1-1.0); BLOOD UREA NITROGEN 88 MG/DL (7-18); BUN/CREATININE RATIO 33.5 (10.0-20.0); CALCIUM 10.2 MG/DL (8.5-10.1); CHLORIDE 106 MMOL/L (99-107); CREATININE 2.63 MG/DL (0.40-0.90); GLUCOSE 121 MG/DL (70-104); SODIUM 142 MMOL/L (135-145); TOTAL CARBON DIOXIDE 19.6 MMOL/L (24-32); TOTAL PROTEIN 7.6 G/DL (6.4-8.2); eCRCL 19 ML/MIN; eGFR 18 ML/MIN
[2023-02-22 18:52] LABS: PRO BRAIN NATRIURETIC PEPTIDE 2016 PG/ML (0-125)
--- NOTE | 2023-02-22 19:00 | NUR ---
Patient placed on Ramon Hugger. Bladder temp 31.5
[2023-02-22 19:16] LABS: ABG BASE EXCESS -9.9 mmol/L (-2.0-2.0); ABG HCO3 17.1 mmol/L (22.0-26.0); ABG OXYGEN SATURATION 92.4 % (94-97); ABG PCO2 (T) 31.9 mmHg (32.0-45.0); ABG PH (T) 7.315 (7.350-7.450); ABG PO2 (T) 49.7 mmHg (75.0-100.0); FCOHb 4.2 % (0.0-3.9); FHHb 7.3 % (0.0-5.0); FLOW 8 L/min; FO2Hb 88.5 % (94-97); MODE MASK - SIMPLE; PATIENT TEMPERATURE 31.2; TOTAL HEMOGLOBIN 15.1 G/dl (12.0-16.0)
[2023-02-22 19:19] LABS: PLATELET ESTIMATE NORMAL; TOTAL CELLS COUNTED 100
[2023-02-22 19:20] LABS: POIKILOCYTOSIS FEW
[2023-02-22 19:22] LABS: ELLIPTOCYTES FEW
[2023-02-22 19:23] LABS: BURR CELLS 1+; SMUDGE CELLS FEW; TOXIC GRANULATION 1+; TOXIC VACUOLATION FEW
[2023-02-22 19:24] LABS: LARGE PLATELETS FEW
--- NOTE | 2023-02-22 19:30 | NUR ---
Attempted to obtain Arctic Sun from ICU, unable, patient continues to use beba hugger.
[2023-02-22 19:39] LABS: MAGNESIUM 3.2 MG/DL (1.5-2.4)
[2023-02-22 19:49] LABS: BILIRUBIN,URINE NEGATIVE (Neg); CLARITY,URINE TURBID (Clear); COLOR,URINE AMBER (Yellow); GLUCOSE, URINE NEGATIVE (Neg); KETONES,URINE TRACE mg/dl (Neg); LEUKOCYTE ESTERASE ,URINE LARGE (Neg); NITRITES, URINE NEGATIVE (Neg); OCCULT BLOOD,URINE MODERATE (Neg); PROTEIN,URINE 100 mg/dl (Neg); UROBILINOGEN,URINE 0.2 E.U/dL (0.2-1.0)
[2023-02-22] MEDS ORDERED: NO HOME MEDS (19:49)
--- NOTE | 2023-02-22 19:54 | NUR ---
Son at bedside providing comfort to patient.
--- NOTE | 2023-02-22 19:56 | NUR ---
Lab at bedside
[2023-02-22 20:12] LABS: UA COLLECTION TYPE FOLEY CATH
[2023-02-22 20:13] LABS: BACTERIA,URINE 4+ /HPF (Neg); SQUAMOUS EPITHELIAL CELL,UR MANY /LPF (FEW); WBC,URINE TNTC /HPF (0-4)
[2023-02-22] MEDS ORDERED: CefTRIAXone/D5W-Rocephin 1gm 50 ML IV ONE (20:15)
[2023-02-22] MEDS ORDERED: ringers solution, lacted 1,000 ML IV ONE (20:15)
[2023-02-22] MEDS ORDERED: ondansetron/PF 4mg/2ml inj IV PRN (20:35)
[2023-02-22] MEDS ORDERED: HYDROcodone/acetaminophen 5mg/325mg tablet PO PRN (20:35)
[2023-02-22] MEDS ORDERED: mag hydrox/Alum hydrox/simeth 30ml oral suspension PO PRN (20:35)
[2023-02-22] MEDS ORDERED: magnesium 4gm in 100ml NS 100 ML IV PRN (20:35)
[2023-02-22] MEDS ORDERED: acetaminophen 325mg tablet PO PRN (20:35)
[2023-02-22] MEDS ORDERED: potassium cl 20mEq in 1/2 NS 1,000 ML IV SCH (20:35)
[2023-02-22] MEDS ORDERED: magnesium Cl slow-release 64mg tablet PO PRN (20:35)
[2023-02-22] MEDS ORDERED: potassium Cl 20 mEq SR tablet PO PRN ×2 (20:35)
[2023-02-22] MEDS ORDERED: magnesium 2GM in 50ml NS 50 ML IV PRN (20:35)
[2023-02-22] MEDS ORDERED: atorvastatin 20mg tablet PO SCH (20:35)
[2023-02-22] MEDS ORDERED: magnesium hydroxide 30ml (MOM) UD suspension PO PRN (20:35)
[2023-02-22] MEDS ORDERED: morphine 2 MG/ML inj. syringe IV PRN (20:35)
[2023-02-22] MEDS ORDERED: potassium Cl 40MEQ/1/2NS 520ml 520 ML IV PRN (20:35)
[2023-02-22 20:42] LABS: AMYLASE 2380 U/L (25-115)
--- NOTE | 2023-02-22 20:46 | NUR ---
Called Dr. Corea re: orders placed. Verbalized understanding of concerns re: diet and inability to take pills. New orders received.
--- NOTE | 2023-02-22 20:51 | NUR ---
No PO meds at this time, discussed with Dr. Corea, okay to hold at this time due to aspiration risk and inability to take oral medication per son.
[2023-02-22 20:58] LABS: LIPASE > 375 U/L (16-77)
[2023-02-22] MEDS ORDERED: ipratropium/albuterol 3ml nebule NEB PRN (22:25)
[2023-02-23] VITALS (18 sets, daily range): BP systolic 95–120; BP diastolic 44–90; PULSE 63–140; RESP 22–28; TEMP 97.2; O2SAT 92–98
--- NOTE | 2023-02-23 | NUR ---
Patient received from ER per branden w/ IV fluid with warmer and O2.
[2023-02-23] MEDS ORDERED: metoprolol tartrate 1mg/ml inj IV ONE ×3 (01:30→01:55)
--- NOTE | 2023-02-23 01:30 | NUR ---
PATIENT PULSE RATE BEEN 130 TO 134, DR. CANDELARIO MADE AWARE AND SHE ORDERED METOPROLOL 10 MGS X 1.
--- NOTE | 2023-02-23 04:15 | NUR ---
DR KODAK CASAS OF PT STATUS, BP 111/79, SD 125, TEMP.96.8, RR 40.
[2023-02-23] MEDS ORDERED: normal saline 1000ml 1,000 ML IV ONE (04:20)
--- NOTE | 2023-02-23 04:20 | NUR ---
CALLED AND MADE ORDER, TO GIVE SALINE 1 L BOLUS AND ABG STAT.
[2023-02-23 04:45] LABS: ABG BASE EXCESS -7.3 mmol/L (-2.0-2.0); ABG HCO3 16.4 mmol/L (22.0-26.0); ABG OXYGEN SATURATION 96.5 % (94-97); ABG PCO2 (T) 27.3 mmHg (32.0-45.0); ABG PH (T) 7.392 (7.350-7.450); ABG PO2 (T) 97.6 mmHg (75.0-100.0); ALLEN'S TEST Modified; FCOHb 3.2 % (0.0-3.9); FHHb 3.4 % (0.0-5.0); FO2Hb 93.4 % (94-97); PATIENT TEMPERATURE 36.1; TOTAL HEMOGLOBIN 13.3 G/dl (12.0-16.0)
[2023-02-23] MEDS ORDERED: NORepinephrine 8mg/ 250ml NS 250 ML IV ONE (05:52)
[2023-02-23 05:57] LABS: ALANINE AMINOTRANSFERASE 39 U/L (12-78); ALBUMIN 2.4 G/DL (3.4-5.0); ALBUMIN/GLOBULIN RATIO 0.6 (1.1-1.5); ALKALINE PHOSPHATASE 78 IU/L (46-116); ANION GAP 13 (8-16); ASPARTATE AMINO TRANSFERASE 95 U/L (10-37); BILIRUBIN,TOTAL 0.5 MG/DL (0.1-1.0); BLOOD UREA NITROGEN 88 MG/DL (7-18); BUN/CREATININE RATIO 29.2 (10.0-20.0); CHLORIDE 107 MMOL/L (99-107); CREATININE 3.01 MG/DL (0.40-0.90); MAGNESIUM 2.3 MG/DL (1.5-2.4); POTASSIUM 5.9 MMOL/L (3.5-5.1); SODIUM 140 MMOL/L (135-145); TOTAL CARBON DIOXIDE 20.5 MMOL/L (24-32); TOTAL PROTEIN 6.1 G/DL (6.4-8.2); eCRCL 16 ML/MIN; eGFR 16 ML/MIN
[2023-02-23 06:00] LABS: BASOPHILS % (AUTO) 0.1 % (0-1); EOSINOPHILS % (AUTO) 0 % (0-6); HEMATOCRIT 41.9 % (35.0-45.0); HEMOGLOBIN 13.5 g/dl (12.0-16.0); LYMPHOCYTES # (AUTO) 0.3 X10'3 (1.1-4.8); LYMPHOCYTES % (AUTO) 5.9 % (21-51); MEAN CORPUSCULAR HEMOGLOBIN 27.8 PG (27.0-31.0); MEAN CORPUSCULAR HGB CONC 32.2 g/dL (33.0-36.5); MEAN CORPUSCULAR VOLUME 86.3 FL (78-98); MEAN PLATELET VOLUME 9.4 FL (7.4-10.4); MONOCYTES # (AUTO) 0.4 X10'3 (0-0.9); MONOCYTES % (AUTO) 6.4 % (2-12); NEUTROPHILS # (AUTO) 5.1 X10'3 (1.8-7.7); NEUTROPHILS % (AUTO) 87.6 % (42-75); PLATELET COUNT 171 X10'3 (140-440); RED BLOOD COUNT 4.85 X10'6 (4.20-5.60); RED CELL DISTRIBUTION WIDTH 15.9 % (11.5-14.5); WHITE BLOOD COUNT 5.8 X10'3 (4.5-11.0)
--- NOTE | 2023-02-23 06:02 | NUR ---
pt arrived without report to 2043 on monitor - transferred to room 2043 - on vent ac/vc 100%, peep 5 - og placed - initial bp 99/44 with drop to 66/42 with hr in svt 170's - levo initiated per charge nurse - report given to day shift, brandon
[2023-02-23 06:04] LABS: GLUCOSE 39 MG/DL (70-104)
[2023-02-23] MEDS ORDERED: NORepinephrine 8mg/ 250ml NS 250 ML IV SCH (06:05)
[2023-02-23] MEDS ORDERED: dextrose 50%-water 50ml dispensing syringe IV ONE ×2 (06:05)
[2023-02-23] MEDS ORDERED: Dextrose 10%-water IV solution 1,000 ML IV SCH (06:05)
[2023-02-23 06:10] LABS: HIV ANTIBODY 1&2 RAPID NON-REACTIVE (Neg)
[2023-02-23] MEDS ORDERED: propofol 1000mg/100ml bottle 100 ML IV SCH (06:10)
[2023-02-23] MEDS ORDERED: ringers solution, lacted 1,000 ML IV ONE ×2 (07:20)
[2023-02-23] MEDS ORDERED: dextrose 5%-lactated ringers 1,000 ML IV SCH (07:20)
[2023-02-23 07:28] LABS: ANISOCYTOSIS 1+; PLATELET ESTIMATE NORMAL; TOTAL CELLS COUNTED 100
[2023-02-23 07:29] LABS: BURR CELLS 1+; NUCLEATED RED BLOOD CELLS 1 /100WBC (0-0); TOXIC GRANULATION 1+
[2023-02-23 07:30] LABS: TOXIC VACUOLATION 1+
[2023-02-23 07:38] LABS: ABG OXYGEN SATURATION 98.7 % (94-97); ABG PCO2 (T) 37.5 mmHg (32.0-45.0); ABG PH (T) 7.253 (7.350-7.450); ABG PO2 (T) 396.4 mmHg (75.0-100.0); ALLEN'S TEST POSITIVE; FHHb 1.3 % (0.0-5.0); FO2Hb 95.7 % (94-97); MODE VENT - AC/VC; PATIENT TEMPERATURE 38.2; PEEP 5 cm H2O; RESPIRATORY RATE 20 b/min; TIDAL VOLUME 350 mL; TOTAL HEMOGLOBIN 12.3 G/dl (12.0-16.0)
[2023-02-23] MEDS ORDERED: hydrocortisone sod succ/PF 100mg/2ml inj. IV SCH (08:00)
[2023-02-23] MEDS ORDERED: pantoprazole 40 MG vial IV SCH (08:00)
[2023-02-23] MEDS ORDERED: docusate sod 100mg capsule PO SCH (08:00)
[2023-02-23] MEDS ORDERED: NORMAL SALINE IV ONE (08:00)
[2023-02-23] MEDS ORDERED: piperacillin/tazo 3.375gm/50ml 50 ML IV SCH (08:00)
[2023-02-23] MEDS ORDERED: CefTRIAXone/D5W-Rocephin 1gm 50 ML IV SCH ×2 (08:00→20:00)
[2023-02-23] MEDS ORDERED: K and/or MAG REPLACEMENT MC SCH (08:00)
[2023-02-23] MEDS ORDERED: TOBRAMYCIN IV ONE (08:00)
[2023-02-23] MEDS ORDERED: enoxaparin 30mg/0.3ml syringe SUBCUT SCH ×2 (08:00→20:00)
[2023-02-23] MEDS ORDERED: pantoprazole 40MG/NS 100ML BAG 100 ML IV SCH (08:24)
[2023-02-23] MEDS ORDERED: aspirin 325mg tablet PO SCH (08:30)
[2023-02-23] MEDS ORDERED: LORazepam 2 mg/ml vial IV PRN (11:45)
--- NOTE | 2023-02-23 12:08 | NUR ---
Malnutrition consult: Pt reports 24-33 lb wt loss with decreased appetite/PO intake per malnutrition risk screen with RN. Unable to obtain information from pt at this time as pt currently intubated. Noted new orders in place to extubate pt and code status has changed to palliative/comfort care. Pt with a low BMI of 14.5 using wt of 42.1 kg. Most recent scaled wt hx in EMR is 59.09 kg 07/08. IF weights are accurate this would be severe wt loss of 28% in just over seven months. Per H&P patient's son states pt usually has a "huge appetite" and pt with loss of appetite noticed the day HEDGE FUND PRINCIPAL. Pt seen at bedside while intubated, bed scale was weighing at just over 49 kg, unsure of wt accuracy. No visible fat/muscle wasting noted in face. Clavicles are present though unsure of baseline appearance. Patient's legs appear thin though again, unsure of baseline appearance. Pt with no edema per EMR. Pt with a low Reese of 8, per verbal d/w RN pt with a DTI to coccyx. Unable to fully assess for malnutrition at this time d/t limited information. Will continue to follow per LOS given code status and monitor s/s of malnutrition as able. Recommendations: 1) Bowel care per comfort care measures Addendum: 02/23/23 at [address] Amended: Links added.
--- NOTE | 2023-02-23 12:26 | NUR ---
Assumed care of pt after report from Keith MCGHEE. Pt's son is making calls to family, and he has decided to have his mother be on comfort care when he returns.
--- NOTE | 2023-02-23 13:42 | NUR ---
some family have gathered w/ the pt. Waiting for others to arrive.
[2023-02-23] MEDS: morphine 10mg/ml inj. IV PRN ×2 (14:35→17:23)
--- NOTE | 2023-02-23 15:05 | NUR ---
Anish Ba, is back and has decided togo w/ [facility]. He is still waiting for other family to arrive. Pt was medicated w/ morphine by Keith MCGHEE for tachypnea.VSS.
--- NOTE | 2023-02-23 17:43 | NUR ---
At 1730, Per pt son's request, IV solutions were stopped, pt was medicated for pain, and she was extubated. Pt's son and his girl friend are at bedside. Pt's RR 12 and HR 124.
--- NOTE | 2023-02-23 18:30 | NUR ---
Report given to Kathleen MCGHEE.
--- NOTE | 2023-02-23 18:36 | NUR ---
RN IS TO DOCUMENT YES TO ALL APPLICABLE AREAS Pronouncement of :yes 1. Time Physician Notified:[id number] 2. Date of :02/23/23 3. Time of : 1807 4. DNR/Withdraw life support documented:yes 5. Monitor strip has been placed on chart:yes 6. Assessment process is of one-minute duration and includes following criteria: a) Patient is unresponsive to all stimuli: yes b) Pupils fixed and non-reactive:yes c) Auscultation of precordium reveals absence of heart tones:yes d) Auscultation of lungs reveals absence of breath sounds:yes e) Absence of blood pressure / all vital signs:yes f) QRS complexes are not present on monitor / EKG strip:yes g) Pacer spikes without capture:yes 4. Comments:
--- NOTE | 2023-02-23 19:12 | NUR ---
post [facility] care complete - viktor and jah staff picked up pt at 1905
[2023-02-24] MEDS ORDERED: mineral oil/petrolatum ophthal oint EACHEYE SCH (08:00)
== END 2023-02-23 19:00 | DRG 720 ==
LOC: ER 18:01 → UNDOADMIN 20:39 → ED HOLD 20:39 → EDBEDREQ 23:19 → EDBEDREQSVC 23:19 → PCU 3S 23:58 → ICU 2S 02-23 05:40
PROVIDERS: ADMIT Internal Medicine; ATTEND Internal Medicine
PROC: 5A12012 Performance of Cardiac Output, Single, Manual (ICD-10-PCS; principal; 2023-02-23)
PROC: 5A1935Z Respiratory Ventilation, Less than 24 Consecutive Hours (ICD-10-PCS; 2023-02-23)
PROC: 0BH17EZ Insertion of Endotracheal Airway into Trachea, Via Natural or Artificial Opening (ICD-10-PCS; 2023-02-23)
PROC: 06HY33Z Insertion of Infusion Device into Lower Vein, Percutaneous Approach (ICD-10-PCS; 2023-02-23)
DX: A41.9 Sepsis, unspecified organism (principal); I63.9 Cerebral infarction, unspecified; I46.9 Cardiac arrest, cause unspecified; J96.01 Acute respiratory failure with hypoxia; R40.20 Unspecified coma; E43 Unspecified severe protein-calorie malnutrition; E86.0 Dehydration; R65.21 Severe sepsis with septic shock; N17.9 Acute kidney failure, unspecified; D72.819 Decreased white blood cell count, unspecified; E87.20 Acidosis, unspecified; D75.1 Secondary polycythemia; E16.2 Hypoglycemia, unspecified; G93.1 Anoxic brain damage, not elsewhere classified; H54.7 Unspecified visual loss; J45.909 Unspecified asthma, uncomplicated; R91.8 Other nonspecific abnormal finding of lung field; N39.0 Urinary tract infection, site not specified; Z51.5 Encounter for palliative care; Z86.73 Personal history of transient ischemic attack (TIA), and cerebral infarction without residual deficits; Z87.891 Personal history of nicotine dependence; Z68.1 Body mass index [BMI] 19.9 or less, adult; Z59.00 Homelessness unspecified
CPT/HCPCS: 36415; 36600; 70450; 71045; 80053; 81001; 82150; 82607; 82803; 82948; 83605; 83690; 83735; 83880; 84145; 84484; 85007; 85018; 85025; 85610; 85730; 86592; 86703; 87040; 87077; 87081; 87088; 87186; 87811; 94002; 94760; 99285; A4333; A4615; A4620; A6213; C9113; J0696; J2060; J2274; J3260; J3480; J3490; J7030; J7120; J7121; Q9967